=== PATIENT | female | born 1985 | race Caucasian/White ===

== ENCOUNTER 2016-06-27 11:55 | Inpatient (IN) | payer OTHER ==
[~2016-06-27] VITALS: Ht 163 cm; Wt 75.0 kg
[2016-06-27] MEDS ORDERED: RINGERS SOLUTION,LACTATED 1,000 ML IV PRN (14:08)
[2016-06-27] MEDS ORDERED: CITRIC ACID/SODIUM CITRATE 30 ML SOLUTION UDCUP PO PRN (14:15)
[2016-06-27] MEDS ORDERED: METOCLOPRAMIDE HCL 5 MG/ML 2 ML VIAL IVP PRN (14:15)
[2016-06-27 14:19] VITALS: BP 117/64
[2016-06-27] MEDS ORDERED: DINOPROSTONE 10 MG VAGINAL SUPPOSITORY VG ONE (14:30)
[2016-06-27] MEDS: RINGERS SOLUTION,LACTATED 1,000 ML IV SCH ×2 (14:40→21:24)
[2016-06-27 18:43] LABS: BASOPHILS % (AUTO) 1.1 % (0.0-2.0); EOSINOPHILS % (AUTO) 0.4 % (1.0-6.0); HEMATOCRIT 39.4 % (36-46); HEMOGLOBIN 12.9 g/dL (12.0-16.0); LYMPHOCYTES # (AUTO) 1.6 K/uL (1.0-4.8); LYMPHOCYTES % (AUTO) 15.8 % (22.0-44.0); MEAN CORPUSCULAR HEMOGLOBIN 29.5 pg (26.0-34.0); MEAN CORPUSCULAR HGB CONC 32.8 G/dL (31.0-37.0); MEAN CORPUSCULAR VOLUME 90 fL (80-100); MONOCYTES # (AUTO) 0.4 K/uL (0.1-1.0); MONOCYTES % (AUTO) 4.1 % (2.0-9.0); NEUTROPHILS # (AUTO) 8.1 K/uL (1.8-7.7); NEUTROPHILS % (AUTO) 78.6 % (40.0-70.0); RED BLOOD CELL COUNT(AUTO) 4.38 MIL/uL (4.00-5.20); WHITE BLOOD COUNT (AUTO) 10.3 K/uL (4.5-11.0)
[2016-06-27] MEDS ORDERED: OXYGEN THERAPY IH SCH (20:00)
[2016-06-27] MEDS ORDERED: VANCOMYCIN HCL 1 GM/D5% WATER 200 ML IV SCH (20:30)
[2016-06-28] MEDS ORDERED: FentaNYL CITRATE-PF 100 MCG/2 ML VIAL IVP PRN
[2016-06-28] MEDS ORDERED: FentaNYL/BUPIV 0.125%/NS/PF 200 ML ED ONE (00:43)
[2016-06-28] MEDS ORDERED: BUPIVACAINE HCL/PF 0.25% 30 ML VIAL ONE (00:44)
[2016-06-28] MEDS ORDERED: ONDANSETRON HCL 4 MG/2 ML VIAL IVP PRN (01:30)
[2016-06-28] MEDS ORDERED: FentaNYL/BUPIV 0.125%/NS/PF 200 ML ED PRN (01:30)
[2016-06-28] MEDS ORDERED: DiphenhydrAMINE HCL 50 MG/ML VIAL IVP PRN (01:30)
[2016-06-28] MEDS ORDERED: OXYTOCIN 30 UNITS/LACT RINGERS 500 ML IV ONE (01:39)
[2016-06-28] MEDS ORDERED: OXYTOCIN 20 UNITS in RINGERS SOLUTION,LACTATED 1,000 ML IV SCH (03:03)
[2016-06-28] MEDS: GLYCERIN/WITCH HAZEL LEAF 40 PADS JAR TP PRN (05:04)
[2016-06-28] MEDS: LANOLIN 7 GM OINTMENT TP PRN (05:04)
[2016-06-28] MEDS: BENZOCAINE 20%/MENTHOL 56 GM SPRAY CANISTER TP PRN (05:04)
[2016-06-28] MEDS: IBUPROFEN 600 MG TABLET PO PRN ×2 (05:05→12:18)
[2016-06-28] MEDS: ACETAMINOPHEN/CODEINE 300-30 MG TABLET PO PRN ×3 (08:46→21:09)
[2016-06-28] MEDS: MAGNESIUM HYDROXIDE SUSPENSION 30 ML UDCUP PO PRN (21:08)
[2016-06-28] MEDS: SENNA/DOCUSATE SODIUM 187-50 MG TABLET PO PRN (21:08)
[2016-06-29 06:35] LABS: BASOPHILS % (AUTO) 0.2 % (0.0-2.0); EOSINOPHILS % (AUTO) 0.7 % (1.0-6.0); HEMATOCRIT 37.1 % (36-46); HEMOGLOBIN 12.3 g/dL (12.0-16.0); LYMPHOCYTES # (AUTO) 2.7 K/uL (1.0-4.8); LYMPHOCYTES % (AUTO) 19.4 % (22.0-44.0); MEAN CORPUSCULAR HGB CONC 33.1 G/dL (31.0-37.0); MEAN CORPUSCULAR VOLUME 91 fL (80-100); MONOCYTES # (AUTO) 0.7 K/uL (0.1-1.0); NEUTROPHILS # (AUTO) 10.3 K/uL (1.8-7.7); NEUTROPHILS % (AUTO) 74.7 % (40.0-70.0); RED BLOOD CELL COUNT(AUTO) 4.09 MIL/uL (4.00-5.20); WHITE BLOOD COUNT (AUTO) 13.7 K/uL (4.5-11.0)
[2016-06-29] MEDS: MAGNESIUM HYDROXIDE SUSPENSION 30 ML UDCUP PO PRN (08:26)
[2016-06-29] MEDS: IBUPROFEN 600 MG TABLET PO PRN (08:26)
[2016-06-29] MEDS: SENNA/DOCUSATE SODIUM 187-50 MG TABLET PO PRN (08:26)
[2016-06-29] MEDS ORDERED: IBUP-2070 PO (10:54)
[2016-06-29] MEDS ORDERED: DSS100 PO (10:55)
[2016-06-29] MEDS: GLYCERIN/WITCH HAZEL LEAF 40 PADS JAR TP PRN (11:13)
[2016-06-29] MEDS: BENZOCAINE 20%/MENTHOL 56 GM SPRAY CANISTER TP PRN (11:13)
[2016-06-29] MEDS ORDERED: SENNA/DOCUSATE SODIUM 187-50 MG TABLET PO ONE (11:15)
[2016-06-29] MEDS: LANOLIN 7 GM OINTMENT TP PRN (11:26)
== END 2016-06-29 11:55 | disposition home or self-care (01) | DRG 775 ==
LOC: 4S 11:55 → OBSVTOIN 11:55
PROVIDERS: ADMIT Obstetrics & Gynecology; ATTEND Obstetrics & Gynecology
PROC: 10E0XZZ Delivery of Products of Conception, External Approach (ICD-10-PCS; principal; 2016-06-27)
PROC: 0KQM0ZZ Repair Perineum Muscle, Open Approach (ICD-10-PCS; 2016-06-27)
DX: O70.1 Second degree perineal laceration during delivery (principal); Z37.0 Single live birth; Z3A.38 38 weeks gestation of pregnancy
CPT/HCPCS: 86850; 86900; 86901; J2590; J3370; J3490; J7120

== ENCOUNTER 2017-10-30 10:00 | Observation (INO) | payer OTHER ==
[~2017-10-30] VITALS: Ht 162.6 cm; Wt 78.5 kg
[~2017-10-30 10:00] MED LIST: DSS100 PO; IBUP-2070 PO
[2017-10-30 10:30] VITALS: BP 127/66
[2017-10-31] MEDS ORDERED: PNV1TABL54 PO (13:51)
== END 2017-10-30 15:20 | disposition home or self-care (01) ==
LOC: 4S 10:00
PROVIDERS: ADMIT Obstetrics & Gynecology; ATTEND Obstetrics & Gynecology
DX: O42.913 Preterm premature rupture of membranes, unspecified as to length of time between rupture and onset of labor, third trimester (principal); Z3A.36 36 weeks gestation of pregnancy
CPT/HCPCS: 36415; 89060; G0378

== ENCOUNTER 2017-10-31 13:10 | Inpatient (IN) | payer OTHER ==
[~2017-10-31] VITALS: Ht 166 cm; Wt 79.8 kg
[2017-10-31] MEDS ORDERED: PNV1TABL54 PO (13:51)
[2017-10-31 14:27] VITALS: BP 113/68
[2017-10-31] MEDS: BETAMETHASONE SOLUSPAN 6 MG/ML 5 ML VIAL IM SCH (16:30)
[2017-11-01] MEDS: BETAMETHASONE SOLUSPAN 6 MG/ML 5 ML VIAL IM SCH (03:56)
[2017-11-01] MEDS ORDERED: ACETAMINOPHEN 325 MG TABLET PO ONE (04:15)
[2017-11-01] MEDS ORDERED: OXYTOCIN 30 UNITS/LACT RINGERS 500 ML IV PRN ×2 (06:41→06:47)
[2017-11-01] MEDS ORDERED: RINGERS SOLUTION,LACTATED 1,000 ML IV SCH ×2 (06:41→06:47)
[2017-11-01] MEDS ORDERED: RINGERS SOLUTION,LACTATED 1,000 ML IV PRN ×2 (06:41→06:47)
[2017-11-01] MEDS ORDERED: FentaNYL CITRATE-PF 100 MCG/2 ML VIAL IVP PRN ×2 (06:45→07:00)
[2017-11-01] MEDS ORDERED: LIDOCAINE HCL/PF 1% 30 ML VIAL INJ PRN ×2 (06:45→07:00)
[2017-11-01] MEDS ORDERED: METOCLOPRAMIDE HCL 5 MG/ML 2 ML VIAL IVP PRN ×2 (06:45→07:00)
[2017-11-01] MEDS ORDERED: CITRIC ACID/SODIUM CITRATE 30 ML SOLUTION UDCUP PO PRN ×2 (06:45→07:00)
[2017-11-01 07:40] LABS: BASOPHILS % (AUTO) 0.1 % (0.0-2.0); EOSINOPHILS % (AUTO) 0 % (1.0-6.0); HEMATOCRIT 37.8 % (36-46); HEMOGLOBIN 13.4 g/dL (12.0-16.0); LYMPHOCYTES # (AUTO) 0.9 K/uL (1.0-4.8); MEAN CORPUSCULAR HGB CONC 35.4 G/dL (31.0-37.0); MEAN CORPUSCULAR VOLUME 88 fL (80-100); MONOCYTES # (AUTO) 0.1 K/uL (0.1-1.0); MONOCYTES % (AUTO) 1.2 % (2.0-9.0); NEUTROPHILS # (AUTO) 10.1 K/uL (1.8-7.7); PLATELET COUNT (AUTO)-OB 244 K/uL (150-450); RED BLOOD CELL COUNT(AUTO) 4.31 MIL/uL (4.00-5.20); RED CELL DISTRIBUTION WIDTH 13.9 % (11.5-14.5)
[2017-11-01 07:48] LABS: NEUTROPHILS % (AUTO) 90.7 % (40.0-70.0)
[2017-11-01] MEDS ORDERED: ROPIVACAINE HCL/PF 0.2% 100 ML ED ONE (12:25)
[2017-11-01] MEDS ORDERED: CeFAZolin 2 GM/DEXTROSE 50 ML IV ONE (14:30)
[2017-11-01] MEDS ORDERED: LANOLIN 7 GM OINTMENT TP PRN (14:45)
[2017-11-01] MEDS ORDERED: BENZOCAINE 20%/MENTHOL 56 GM SPRAY CANISTER TP PRN (14:45)
[2017-11-01] MEDS ORDERED: ACETAMINOPHEN/CODEINE 300-30 MG TABLET PO PRN ×2 (14:45)
[2017-11-01] MEDS ORDERED: GLYCERIN/WITCH HAZEL LEAF 40 PADS JAR TP PRN (14:45)
[2017-11-01] MEDS: IBUPROFEN 800 MG TABLET PO SCH ×2 (17:46→23:41)
[2017-11-01] MEDS: MAGNESIUM HYDROXIDE SUSPENSION 30 ML UDCUP PO SCH (21:22)
[2017-11-02] MEDS: IBUPROFEN 800 MG TABLET PO SCH ×2 (06:01→12:15)
[2017-11-02] MEDS: MAGNESIUM HYDROXIDE SUSPENSION 30 ML UDCUP PO SCH (09:31)
[2017-11-02] MEDS ORDERED: IBUP-2071 PO (11:37)
[2017-11-02] MEDS ORDERED: SENNA/DOCUSATE SODIUM 187-50 MG TABLET PO ONE (14:45)
== END 2017-11-02 15:35 | disposition home or self-care (01) | DRG 775 ==
LOC: OBSVTOIN 13:10 → 4S 13:10
PROVIDERS: ADMIT Obstetrics & Gynecology; ATTEND Obstetrics & Gynecology
PROC: 10E0XZZ Delivery of Products of Conception, External Approach (ICD-10-PCS; principal; 2017-11-01)
PROC: 0KQM0ZZ Repair Perineum Muscle, Open Approach (ICD-10-PCS; 2017-11-01)
PROC: 3E0R3BZ Introduction of Anesthetic Agent into Spinal Canal, Percutaneous Approach (ICD-10-PCS; 2017-11-01)
PROC: 00HU33Z Insertion of Infusion Device into Spinal Canal, Percutaneous Approach (ICD-10-PCS; 2017-11-01)
DX: O60.14X0 Preterm labor third trimester with preterm delivery third trimester, not applicable or unspecified (principal); O70.1 Second degree perineal laceration during delivery; O69.81X0 Labor and delivery complicated by cord around neck, without compression, not applicable or unspecified; Z3A.36 36 weeks gestation of pregnancy; Z37.0 Single live birth
CPT/HCPCS: 86850; 86900; 86901; J0690; J0702; J2590; J2795; J7120